=== PATIENT | male | born 1985 | race Caucasian/White ===

== ENCOUNTER 2017-11-10 13:09 | Emergency (ER) | payer MEDICAID ==
[~2017-11-10] VITALS: Ht 172.7 cm; Wt 82.6 kg
[~2017-11-10 13:09] MED LIST: ACET1TAB93 PO; DIAZ5TAB7 PO; NAPR-54 PO
[2017-11-10 13:13] VITALS: BP 152/107
--- NOTE | 2017-11-10 14:50 | NUR ---
PATIENT PRESENTS TO ED WITH C/O RIGHT SHOULDER PAIN SINCE LAST NIGHT; WORSE THIS AM; DENIES INJURY OR TRAUMA HX NON; DENIES N/V/D; SKIN IS PINK/WARM/DRY; AAOX4 WITH EVEN AND STEADY GAIT; LUNGS CLEAR BL; HR EVEN AND REGULAR; PT DENIES ANY FEVER, CP, SOB, OR COUGH AT THIS TIME; PATIENT STATES PAIN OF 10/10 AT THIS TIME; VSS; PATIENT POSITIONED FOR COMFORT; HOB ELEVATED; BEDRAILS UP X2; BED DOWN. ER MD MADE AWARE OF PT STATUS.
[2017-11-10 16:40] VITALS: BP 128/77
--- NOTE | 2017-11-10 16:40 | NUR ---
Patient discharged with v/s stable. Written and verbal after care instructions given and explained. Patient alert, oriented and verbalized understanding of instructions. Ambulatory with steady gait. All questions addressed prior to discharge. ID band removed. Patient advised to follow up with PMD. Rx of MEDROL, TRAMADOL given. Patient educated on indication of medication including possible reaction and side effects. Opportunity to ask questions provided and answered.
== END 2017-11-10 16:40 | disposition home or self-care (01) ==
LOC: MED 13:09
DX: M54.12 Radiculopathy, cervical region (principal); Z79.899 Other long term (current) drug therapy
CPT/HCPCS: 72125; 99284

== ENCOUNTER 2018-11-28 08:25 | Emergency (ER) | payer SELFPAY ==
[~2018-11-28] VITALS: Ht 172.7 cm; Wt 83.9 kg
--- NOTE | 2018-11-28 08:32 | NUR ---
PT AMBULATED TO ER BED 06
--- NOTE | 2018-11-28 08:35 | NUR ---
BIB self s/p fall on skateboard while taking daughter to school. Sustained approx. 1 1/2 inch laceration to great L toe, bleeding controlled, stinging, non radiating pain 05/30. No deformities noted to ankle, no LOC, date of last tetanus unknown.
[2018-11-28 08:38] VITALS: BP 149/93
[2018-11-28] MEDS ORDERED: IBUPROFEN 400 MG TAB PO ONE (09:00)
[2018-11-28 09:32] VITALS: BP 125/74
--- NOTE | 2018-11-28 09:33 | NUR ---
Patient discharged with v/s stable. Written and verbal after care instructions given and explained. Patient alert, oriented and verbalized understanding of instructions. Ambulatory with steady gait. All questions addressed prior to discharge. ID band removed. Patient advised to follow up with PMD. Rx of Motrin 400mg given. Patient educated on indication of medication including possible reaction and side effects. Opportunity to ask questions provided and answered.
== END 2018-11-28 09:33 | disposition home or self-care (01) ==
LOC: MED 08:25
DX: S91.112A Laceration without foreign body of left great toe without damage to nail, initial encounter (principal); Z79.1 Long term (current) use of non-steroidal anti-inflammatories (NSAID); X58.XXXA Exposure to other specified factors, initial encounter; Y93.51 Activity, roller skating (inline) and skateboarding; Y92.89 Other specified places as the place of occurrence of the external cause; Y99.8 Other external cause status
CPT/HCPCS: 99283